=== PATIENT | male | born 1945 | race Hispanic/Latino ===

== ENCOUNTER 2019-11-01 11:33 | Outpatient (CLI) | payer OTHER ==
--- NOTE | 2019-11-01 13:04 | Cat Scan Report ---
CT chest wo con INDICATION: MAIN. Pulmonary nodules TECHNIQUE: All CT scans at this location are performed using CT dose reduction for ALARA by means of automated e xposure control. COMPARISON: None available. FINDINGS: Mediastinum, david and axillae are negative on this noncontrast exam. Upper abdomen is unremarkable. History is noted, but I see no significant pulmonary or pleural lesions. Tiny density in the left low er lobe (series 2 image 80) appears to represent focal thickening of interlobular septation and not a true pulmonary nodule. IMPRESSION: 1. No significant abnormality. Signer Name: Scott Bautista MD Signed: 11/01/2019 12:59 PM Workstation Name: [id number]
== END 2019-11-01 11:34 | disposition home or self-care (01) ==
LOC: CT 11:33
PROVIDERS: ATTEND Family Medicine
DX: Z01.89 Encounter for other specified special examinations (principal)
CPT/HCPCS: 71250